=== PATIENT | female | born 1985 | race Caucasian/White ===

== ENCOUNTER → 2020-12-20 14:32 | Outpatient (BNVA) | payer MEDICAID, SELFPAY | PROVIDERS: Visit Provider Nurse Practitioner Family | DX: N39.0 Urinary tract infection, site not specified (principal); N92.6 Irregular menstruation, unspecified; R39.9 Unspecified symptoms and signs involving the genitourinary system | CPT/HCPCS: 81000; 81025 ==

== ENCOUNTER → 2024-04-05 16:56 | Outpatient (BNVA) | payer MEDICAID, SELFPAY | PROVIDERS: PCP Nurse Practitioner; Visit Provider Nurse Practitioner Family | DX: U07.1 COVID-19 (principal) | CPT/HCPCS: 87426 ==

== ENCOUNTER → 2024-04-23 16:26 | Outpatient (BNVA) | payer MEDICAID, SELFPAY | PROVIDERS: PCP Nurse Practitioner; Visit Provider Registered Nurse Neonatal Intensive Care | DX: R30.0 Dysuria (principal) | CPT/HCPCS: 81000 ==

== ENCOUNTER → 2024-04-26 15:28 | Outpatient (BNVA) | payer MEDICAID, SELFPAY | PROVIDERS: PCP Nurse Practitioner; Visit Provider Nurse Practitioner Family | DX: R30.0 Dysuria (principal) | CPT/HCPCS: 81000 ==

== ENCOUNTER → 2024-10-12 13:43 | Outpatient (BNVA) | payer MEDICAID, SELFPAY | PROVIDERS: PCP Nurse Practitioner; Visit Provider Nurse Practitioner | DX: R52 Pain, unspecified (principal) | CPT/HCPCS: 87400 ==

== ENCOUNTER 2025-01-31 16:22 | Outpatient (CLI) | payer MEDICAID, SELFPAY ==
--- NOTE | 2025-01-31 16:00 | MR_ITS ---
WS: [id number] MRI LUMBAR SPINE NONCONTRAST TECHNIQUE: Sagittal T1, T2 and STIR imaging. Axial T1 and T2 imaging. CLINICAL INFORMATION: M54.50 - Low back pain, unspecified COMPARISON: None. FINDINGS: Mild lumbar curve. No acute compression. Disc bulging worse at L5-S1 with a RIGHT paracentral protrusion. Slight impingement on the traversing RIGHT S1 nerve root. Recommend correlation RIGHT S1 nerve root symptoms. Small annular fissure. L1-L2: Moderate facet arthropathy. Spinal canal and foramen patent. L2-L3: Minimal annular bulging. Moderate facet arthropathy. Spinal canal and foramen are patent. L3-L4: Mild annular bulging. Slight effacement of the ventral thecal sac. Moderate facet arthropathy. Spinal canal and foramen patent. L4-L5: Mild annular bulging. Impingement on the traversing LEFT greater than RIGHT L5 nerve roots in the subarticular recess. Moderate facet arthropathy. Small RIGHT foraminal protrusion with a small annular fissure. Mild RIGHT foraminal narrowing. LEFT foramen is patent. L5-S1: RIGHT paracentral disc protrusion impinges the traversing RIGHT S1 nerve root in the subarticular recess. Recommend correlation for RIGHT S1 nerve root symptoms. Small annular fissure. Foramen are patent. Moderate facet arthropathy. Small RIGHT renal cyst. Visualized pelvic bony structures: Normal. Paravertebral soft tissues: Normal. Small shallow protrusions in the cervical spine on the gi physician imaging at C3-C4 and C4-C5. MR/MR lumbar spine wo con* [id number] IMPRESSION: 1. RIGHT paracentral disc protrusion L5-S1 impinges the traversing RIGHT S1 ne rve root in the subarticular recess. Small annular fissure at this level. 2. Mild annular bulging L4-5 impinges the traversing LEFT greater than RIGHT L 5 nerve roots in the subarticular recess. 3. Small RIGHT foraminal protrusion L4-5 with a small annular tear impinges th e exiting L4 nerve root. Recommend correlation RIGHT L4 nerve root symptoms. 4. Moderate facet arthropathy L3-L5.
== END 2025-01-31 16:23 | disposition home or self-care (01) ==
PROVIDERS: PCP Nurse Practitioner; Visit Provider Nurse Practitioner
DX: M51.26 Other intervertebral disc displacement, lumbar region (principal); M47.896 Other spondylosis, lumbar region; G89.29 Other chronic pain
CPT/HCPCS: 72148

== ENCOUNTER → 2025-03-06 13:56 | Outpatient (BNVA) | payer MEDICAID, SELFPAY | PROVIDERS: PCP Nurse Practitioner; Visit Provider Orthopaedic Surgery | DX: M54.50 Low back pain, unspecified (principal); M54.9 Dorsalgia, unspecified; M48.062 Spinal stenosis, lumbar region with neurogenic claudication | CPT/HCPCS: 72110 ==

== ENCOUNTER 2025-03-23 06:30 | Outpatient (RCR) | payer MEDICAID, SELFPAY | END 2025-04-22 23:59 | disposition home or self-care (01) | LOC: MPT 06:30 | PROVIDERS: Visit Provider Orthopaedic Surgery | DX: M54.50 Low back pain, unspecified (principal); G89.29 Other chronic pain | CPT/HCPCS: 97110; 97161; 97530 ==

== ENCOUNTER 2025-04-23 05:00 | Outpatient (RCR) | payer MEDICAID, SELFPAY | END 2025-05-22 23:59 | disposition home or self-care (01) | LOC: MPT 05:00 | PROVIDERS: PCP Nurse Practitioner; Visit Provider Orthopaedic Surgery | DX: M54.50 Low back pain, unspecified (principal); G89.29 Other chronic pain | CPT/HCPCS: 97110 ==

== ENCOUNTER → 2025-05-09 10:31 | Outpatient (BNVA) | payer MEDICAID, SELFPAY | PROVIDERS: PCP Nurse Practitioner; Visit Provider Nurse Practitioner | DX: R11.0 Nausea (principal); R53.83 Other fatigue | CPT/HCPCS: 87426 ==

== ENCOUNTER → 2025-06-05 10:04 | Outpatient (BNVA) | payer MEDICAID, SELFPAY | PROVIDERS: PCP Nurse Practitioner; Visit Provider Nurse Practitioner | DX: R10.9 Unspecified abdominal pain (principal); R80.9 Proteinuria, unspecified; M16.0 Bilateral primary osteoarthritis of hip | CPT/HCPCS: 74018; 81000 ==

== ENCOUNTER → 2025-06-21 15:30 | Outpatient (BNVA) | payer MEDICAID, SELFPAY | PROVIDERS: PCP Nurse Practitioner; Visit Provider Orthopaedic Surgery | DX: Z01.818 Encounter for other preprocedural examination (principal); M48.062 Spinal stenosis, lumbar region with neurogenic claudication | CPT/HCPCS: 36415; 80053; 81001; 85025 ==

== ENCOUNTER → 2025-07-06 16:14 | Outpatient (BNVA) | payer MEDICAID, SELFPAY | PROVIDERS: PCP Nurse Practitioner; Visit Provider Nurse Practitioner | DX: R39.9 Unspecified symptoms and signs involving the genitourinary system (principal) | CPT/HCPCS: 81000; 87086 ==

== ENCOUNTER → 2025-08-06 15:11 | Outpatient (BNVA) | payer MEDICAID, SELFPAY | PROVIDERS: PCP Nurse Practitioner; Visit Provider Nurse Practitioner | DX: R39.89 Other symptoms and signs involving the genitourinary system (principal) | CPT/HCPCS: 81000; 87086 ==